=== PATIENT | female | born 1990 | race Caucasian/White ===

== ENCOUNTER 2017-03-15 10:30 | Emergency (ER) | payer BC ==
[2017-03-15 11:05] VITALS: RESP 16; TEMP 98.3
--- NOTE | 2017-03-15 22:02 | PDOC ---
Sore Throat/Dental Pain HPI - General Chief Complaint: Sore Throat Stated Complaint: sore throat for 2 days Date Seen by Provider: 03/15/17 Time Seen by Provider: 10:35 Source: POSITIVE: Patient Exam Limitations: POSITIVE: No limitations Nurse's Notes Reviewed & Considered: Yes - History of Present Illness Initial Comments: The patient is a 27-year-old female. She presents to the emergency room complaining of a 3-4 day history of a "bad sore throat". She states that she has a history of recurring tonsillitis. She states she had a increased temperature yesterday. She has a muffled voice. She has pain with eating and swallowing. No adenopathy. No rashes or skin changes. Mild cough. Location: Throat Timing: REPORTS: Constant Duration: >24 hours (3-4 days) Severity: Moderate Quality: REPORTS: "Pain" (Sore throat) Context: DENIES: Foreign Body, Ingestion, Fractured Tooth, Other Modifying Factors: improves with: Coughing (Mild nonproductive cough; some throat pain with cough.) Associated Symptoms: REPORTS: Fever (Yesterday), Sore Throat Similar Symptoms Previously: Yes Recently seen/treated/hospitalized: No Any Prior Injuries Related to Current Complaint?: No - Patient Home Medications Home Medications: Home Medications Azithromycin [Zithromax] 500 mg PO DAILY #5 tab 03/15/17 Phentermine HCl 30 mg PO DAILY 03/15/17 - Patient Allergies Allergies/Adverse Reactions: Allergies Allergy/AdvReac Type Severity Reaction Status Date / Time No Known Allergies Allergy Verified 03/15/17 10:50 Past Medical History - heen HEENT History: Recurrent Throat Infect. Cardiovascular History: Denies History Respiratory History: Denies History Gastrointestinal History: Denies History Genitourinary History: Denies History Endocrine History: Denies History Musculoskeletal History: Back Injury Prosthesis or Implant: No Neurological History: Denies History Blood Disorders: Denies History Psychiatric History: Denies History History of Sexually Transmitted Diseases: No Female Reproductive History: Denies History LMP: 2 WEEKS Cancer History: Denies History In Past Year Been Physically Harmed or Verbally Threatened: No History of MDRO: No History of Other Communicable Diseases: No Tobacco Use: Former Smoker Alcohol Use: Rarely Substance Use Type: None Previous Surgical History: No Significant Family History: No pertinent family hx Past Medical History Reviewed: Reviewed - No Changes ROS - Limitations ROS Limitations: No Limitations Constitution: REPORTS: Fever Cardiovascular: REPORTS: Denies Cardiac Symptoms Respiratory: REPORTS: Cough Productive Neurological: REPORTS: Denies Neuro Symptoms Gastrointestinal: REPORTS: Denies GI Symptoms Endocrine: REPORTS: Denies Symptoms Musculoskeletal: REPORTS: Denies MS Symptoms Genitourinary: REPORTS: Denies Symptoms Eyes: REPORTS: Denies Symptoms ENT: REPORTS: Sore Throat Skin: REPORTS: Denies Skin Symptoms Lympathic: REPORTS: Denies Lympathic Symptoms Immunologic: POSITIVE: Denies Symptoms Psychiatric: POSITIVE: Denies Psych Symptoms Sore Throat/Dental Pain Exam - General Appearance General Appearance: REPORTS: Alert, Cooperative, No Acute Distress, No Evidence of Trauma - HEENT Head / Face: POSITIVE: Atraumatic, Normal Inspection, No Facial Swelling Eyes: POSITIVE: Inspection Normal, PERRL, EOM's Intact, Eyelids Uninjured, Conjunctivae Uninjured, No Nystagmus, No Globe Trauma, Sclera Normal, Normal Corneal Inspection Ears: POSITIVE: Ears Normal Inspection, TM Normal Inspection, Auricle Normal, External Canal Normal Nose: POSITIVE: Inspection Normal, No Apparent Trauma, Nares Normal, No CSF Leak Oropharynx: POSITIVE: External Inspection Nml, Airway Intact, Voice Normal, Moist Mucous Membranes, No Oral Injury, Lips Normal, Gums Normal, No Drooling, No Thrush, Normal Gag Reflex, Pharyngeal Erythema. NEGATIVE: Pharynx Inspect. Nml (Pharyngeal erythema) Neck: POSITIVE: Supple, Normal Inspection, Non Tender Dental: POSITIVE: No Dental Injury - Respiratory Respiratory: REPORTS: No Respiratory Distress, Breath Sounds Normal, No Pleuritic Chest Pain, Speaks Full Sentences, No Pain on Inspiration - Cardiovascular Cardiovascular: REPORTS: Regular Rate and Rhythm, Heart Sounds Normal, Equal Pulses, Strong Pulses Peripheral Pulses: Radial (R): 2+, Radial (L): 2+ - Abdomen Abdomen: Soft: (All Quadrants), Normal Bowel Sounds: (All Quadrants), Denies Tenderness: (All Quadrants), No Splenomegaly: (All Quadrants), No Hepatomegaly: (All Quadrants), No Guarding: (All Quadrants), No Rebound: (All Quadrants), No Palpable Pulse: (All Quadrants), No Palpabale Mass: (All Quadrants), No Distention: (All Quadrants), No Rigidity: (All Quadrants) - Extremities Extremity: Non-Tender: (All Extremities), Normal ROM: (All Extremities), Normal Inspection: (All Extremities) - Skin Skin: REPORTS: Intact, Normal For Race, Warm, Dry, No Rash - Neurological / Psychological Neurological: POSITIVE: Oriented X3, 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 Tylenol or Advil.) School/Work Release Addressed: POSITIVE: Not Applicable Re-Examine Time:: 11:05 Status: POSITIVE: Unchanged - Consult Counseled: POSITIVE: Patient, RE: Lab Results, RE: DX, RE: Need for F/U Patient Care Time - Estimated PCT Patient Care Time (In Minutes): 20 Vital Signs - VS Reviewed Vital Signs Reviewed: Yes Discharge Clinical Impression: Pharyngitis Discharge Disposition: Discharged to Home Condition: Stable Prescriptions / Orders: Azithromycin [Zithromax] 500 mg PO DAILY #5 tab Patient Instructions Given at Discharge: Pharyngitis (ED) Additional Instructions: Zithromax, 1 daily for 5 days. Soft diet. Chloraseptic or other over-the- counter preparations to soothe her throat. Increase fluids. Follow-up with your primary care provider. Return here as necessary. Follow Up With: CLAUDE KEENE [Primary Care Provider] - (Instructions as above. Follow-up with your primary care provider. Return here as necessary.)
== END 2017-03-15 11:35 | disposition home or self-care (01) ==
LOC: ER 10:30
DX: J02.9 Acute pharyngitis, unspecified (principal); R05 Cough
CPT/HCPCS: 87802; 99282